=== PATIENT | female | born 1960 | race Caucasian/White ===

== ENCOUNTER 2020-11-20 14:32 | Inpatient (IN) | payer MEDICAID ==
[~2020-11-20] VITALS: Ht 165.1 cm; Wt 79.5 kg
--- NOTE | ~2020-11-20 | HEMODYNAMI ---
PATIENT:MICHAEL MUNOZ MEDICAL RECORD: [id number] : 56 LOCATION:[facility] D.2125 [facility]# [id number] ADMISSION DATE: 11/20/20 Generatedon:114:58 Patient name: MICHAEL MUNOZ Patient #: [id number] SSN: [id number] : 1960 Date of study: 11/21/2020 Page: Of Hemodynamic Procedure Report Patient Data Patient Demographics Procedure consent was obtained First Name: MICHAEL Gender: Female Last Name: ALEXANDER : 1960 [facility] Initial: L Age: 60 year(s) Patient #: [id number] Race: Unknown SSN: [id number] Additional ID: [id number] Contact details Address: [place] [address] State: [place] City: [facility] Zip code: [address] Past Medical History Allergies Allergen Reaction Date Comments Reported Other allergy 11/21/2020 Codeine Admission Admission Data Admission Date: 11/20/2020 Admission Time: 16:48 Admit Source: Other Insurance Payor: Medicaid Room #: D.2125 [facility] #: [id number] Height (in.): 64.96 BSA: 1.86 (m2) Height (cm.): 165 BMI: 29.02 (kg/m2) Weight (lbs.): 174.17 Weight (kg.): 79 Lab Results Lab Result Date: 11/21/2020 Lab Result Time: 0:00 Biochemistry Name Units Result Min Max BUN mg/dl 12 --(-*--)-- 7 18 Creatinine mg/dl 1.1 --(--*-)-- 0.6 1.3 eGFR ml/min 53 *-(----)-- 90 120 NONAFRICAN CBC Name Units Result Min Max Hemoglobin g/dl 13.4 -*(----)-- 13.5 17.5 Procedure Procedure Types Cath Procedure Diagnostic Procedure LHC LHC w/Coronaries FFR/IVUS FFR Initial Sedation Charges Moderate Sedation 10-24 minutes PCI Procedure Hemochron ACT Test Procedure Description Procedure Date Procedure Date: 11/21/2020 Procedure Start Time: 14:28 Procedure End Time: 14:55 Procedure Staff Name Function Jean Carlos Powell MD Performing Physician Adilene Adame RT Monitor More Booker RN Nurse Alma Delia Urban RT Scrub Procedure Data Cath Procedure Fluoroscopy Diagnostic fluoroscopy Total fluoroscopy Time: 8.1 time: 8.1 min min Diagnostic fluoroscopy Total fluoroscopy dose: 658 dose: 658 mGy mGy Contrast Material Contrast Material Type Amount (ml) Isovue 300 92 Entry Location Entry Primary Successful Side Size Upsize Upsize Entry Closure You ccessful Closure Location (Fr) 1 (Fr) 2 (Fr) Remarks Device Remarks Radial Right 6 Fr Mechanical artery Short Compression Estimated blood loss: 10 ml Diagnostic catheters Device Type Used For End Catheter Placement DIAGNOSTIC [place] 110cm 5 Procedure Fr catheter ([id number]) Procedure Complications No complications Procedure Medications Medication Administration Route Dosage 0.9% NaCl I.V. 100 ml/hr Heparin Flush Bag added to field 2 bags (1000units/500ml NS) Lidocaine 2% added to field 20 Oxygen NC 3 l/min Versed I.V. 1 mg Fentanyl I.V. 50 mcg Heparin Bolus I.V. 3000 units Versed I.V. 1 mg Fentanyl I.V. 50 mcg Versed I.V. 1 mg Fentanyl I.V. 50 mcg Versed I.V. 0.5 mg Fentanyl I.V. 25 mcg Hemodynamics Rest BSA: 1.86 (m2) HGB: 13.4 (g/dl) O2 Consumption: Estimated: 172.21 (ml/min) O2 Co nsumption indexed: Estimated:92.59 (ml/min/m) Heart Rate: 66 (bpm) Pressure Samples Time Site Value (mmHg) Purpose Heart Use Rate(bpm) 14:31 LV 109/6,9 Snapshot 67 Gradients Valve Time Site Site Mean SEP/DFP Peak To Heart Use 1 2 (mmHg) (sec/min) Peak Rate (mmHg) (bpm) Aortic 14:31 LV AO 76 Snapshots Pre Cath Intra NCS Post Cath Vital Signs Time Heart Resp SPO2 etCO2 NIBP (mmHg) Rhythm Pain Sedation Rate (ipm) (%) (mmHg) Status Level (bpm) 14:17:49 61 15 100 19.5 181/90(159) NSR 0 (11) 10(A) , No pain 14:23:17 66 29 96 26.3 164/81(138) NSR 0 (11) 10(A) , No pain 14:27:47 58 12 88 30.8 135/69(97) NSR 0 (11) 10(A) , No pain 14:32:46 61 11 92 33.1 Measuring NSR 0 (11) 9(A) , No pain 14:32:59 60 10 92 28.6 127/63(93) NSR 0 (11) 9(A) , No pain 14:37:15 61 19 93 35.4 118/66(104) NSR 0 (11) 9(A) , No pain 14:41:27 58 10 95 34.6 116/61(93) NSR 0 (11) 9(A) , No pain 14:45:41 59 10 94 34.6 118/56(93) NSR 0 (11) 9(A) , No pain 14:49:55 57 13 97 36.9 127/66(102) NSR 0 (11) 9(A) , No pain 14:54:15 48 12 97 33.8 127/60(102) NSR 0 (11) 10(A) , No pain Medications Time Medication Route Dose Verified Delivered Reason Notes Effectiveness by by 14:19:05 0.9% NaCl I.V. 100 Jean Carlos More used for ml/hr AndreJoey Booker procedure MD LEVIN 14:19:13 Heparin Flush added 2 Jean Carlos More used for Bag to bags AndreJoey Booker procedure (1000units/500ml field FERNANDEZ RN NS) 14:19:22 Lidocaine 2% added 20ml Jean Carlos More for local to vial AndreJoey Booker anesthetic field MD LEVIN 14:19:31 Oxygen NC 3 Jean Carlos More for low 02 sats l/min St Joey Booker MD, RN 14:26:37 Versed I.V. 1 mg Jean Carlos More for sedation St Joey Booker MD, RN 14:26:46 Fentanyl I.V. 50 Jean Carlos More for sedation mcg St Joey Booker MD, RN 14:30:03 Versed I.V. 1 mg Jean Carlos More for sedation St Joey Booker MD, RN 14:30:13 Fentanyl I.V. 50 Jean Carlos More for sedation mcg St Joey Booker MD, RN 14:35:22 Versed I.V. 1 mg Jean Carlos More for sedation St Joey Booker MD, RN 14:35:32 Fentanyl I.V. 50 Jean Carlos More for sedation mcg St Joey Booker MD, RN 14:36:36 Heparin Bolus I.V. 3000 Jean Carlos More for verifi ed units St Joey Booker anticoagulation with dr MD POONAM powell 14:40:25 Versed I.V. 0.5 Jean Carlos More for sedation mg St Joey Booker MD, RN 14:40:37 Fentanyl I.V. 25 Jean Carlos More for sedation mcg St Joey Booker MD, RN Procedure Log Time Note 13:54:27 Admit Source: Other 13:54:31 Insurance Payor : Medicaid 13:54:37 Patient Height : 64.96 inches 13:54:41 Patient Weight : 174.17 lbs 13:55:11 Lab Result : eGFR NONAFRICAN 53 ml/min 13:55:11 Lab Result : Creatinine 1.1 mg/dl 13:55:11 Lab Result : BUN 12 mg/dl 13:55:11 Lab Result : Hemoglobin 13.4 g/dl 13:55:46 Procedure Status Urgent Heart Cath (IP). 13:55:50 Adilene Adame RT(R) sent for patient. Start room use. 13:56:04 Time tracking: Regular hours (M-F 7:00 - 5:00) 13:56:10 Plan of Care:Hemodynamics will remain stable., Cardiac rhythm will remain stable., Comfort level will be maintained., Respiratory function will remain adequate., Patient/ family verbilizes understanding of procedure., Procedure tolerated without complication., Recovers from procedure without complications.. 13:56:21 Patient received from Med II to CCL 1 Alert and oriented. Tansferred to table in Supine position. 14:15:27 Vital chart was started 14:19:05 0.9% NaCl 100 ml/hr I.V. was administered by More Booker RN; used for procedure; Verbal order read back and verified. 14:19:13 Heparin Flush Bag (1000units/500ml NS) 2 bags added to field was administered by More Booker RN; used for procedure; Verbal order read back and verified. 14:19:22 Lidocaine 2% 20ml vial added to field was administered by More Booker RN; for local anesthetic; Verbal order read back and verified. 14:19:31 Oxygen 3 l/min NC was administered by More Booker RN; for low 02 sats; Verbal order read back and verified. 14:20:11 Signed procedure consent form obtained from patient. 14:20:13 Warm blankets applied, and rajinder hugger turned on for patient comfort. 14:20:14 Correct patient and procedure confirmed by team. 14:20:14 ECG and BP/O2 sat monitors applied to patient. 14:20:18 Baseline sample Acquired. 14:20:22 Rhythm: sinus rhythm 14:20:24 Full Disclosure recording started 14:20:30 H&P Date Dictated: 11/21/2020 Within 30 days and on chart., H&P Addendum completed by physician on day of procedure. (MUST COMPLETE FOR ALL OUTPATIENTS). 14:20:32 Pre-procedure instructions explained to patient. 14:20:34 Family in patients room. 14:20:36 Patient NPO since Midnight. 14:20:51 Patient allergic to Other allergyCodeine 14:20:56 Is the patient allergic to Iodine/contrast media? No. 14:20:59 Was the patient premedicated? Yes 14:21:07 Is patient on blood thinner?No 14:21:08 Patient diabetic? No. 14:21:12 Snore? Yes 14:21:13 Sleep apnea? No 14:21:22 Patient pain scale 0/10 ?. 14:21:29 IV patent on arrival in left hand with 0.9% NaCl at O. 14:21:32 Lab results completed and on chart. 14:21:40 Right Radial & Right Groin area was prepped with chlora-prep and draped in sterile fashion 14:21:41 Alarms reviewed by R. N. 14:21:42 Sharps counted by scrub and verified by R.N. 14:21:43 Physician arrived 14:21:44 --------ALL STOP TIME OUT------ 14:21:46 Final Timeout: patient, procedure, and site verified with staff and physician. All members of the team are in agreement. 14:21:52 Right Radial & Right Groin site verified by team. 14:21:56 Fire Safety Assessment: A--An alcohol-based skin anteseptic being used preoperatively., C--Open oxygen or nitrous oxide is being used., D--An ESU, laser, or fiber-optic light is being used. 14:22:00 Physical assessment completed. ASA score P 3 - A patient with severe systemic disease as per Jean Carlos Powell MD. 14:22:15 3a) 45-59 Moderately reduced kidney function. 14:22:26 Maximum allowable contrast dose (3.7 X eGFR X 0.75)147 ml. 14:22:31 Sedation plan: IV Moderate Sedation Medication:Versed, Fentanyl 14:22:35 Use device set Radial Dx or PCI 14:22:38 ACIST Syringe (33973) opened to sterile field. 14:22:39 Medline Cath Pack ([id number]) opened to sterile field. 14:22:39 Bag Decanter (2002S) opened to sterile field. 14:22:40 ACIST Hand Control (32529) opened to sterile field. 14:22:41 ACIST Manifold (02640) opened to sterile field. 14:22:43 MBrace Wrist Support (681953308) opened to sterile field. 14:22:45 EMERALD Guide Wire (887-619) opened to sterile field. 14:22:46 SHEATH 6FR RAIN (8659824) opened to sterile field. 14:23:11 Zero performed for pressure channel P1 14:24:28 Zero performed for pressure channel P1 14:26:37 Versed 1 mg I.V. was administered by More Booker RN; for sedation; Verbal order read back and verified. 14:26:46 Fentanyl 50 mcg I.V. was administered by More Booker RN; for sedation; Verbal order read back and verified. 14:27:46 Procedure started. 14:28:04 Local anesthetic to right radial artery with Lidocaine 2% by Jean Carlos Powell MD.INITIAL ACCESS ONLY 14:29:12 A 6 Fr Short sheath was inserted into the Right Radial artery 14:29:30 A DIAGNOSTIC [place] 110cm 5 Fr catheter (580778) was advanced over the wire and used for Procedure. 14:29:33 LV angiography performed. 14:30:03 Versed 1 mg I.V. was administered by More Booker RN; for sedation; Verbal order read back and verified. 14:30:13 Fentanyl 50 mcg I.V. was administered by More Booker RN; for sedation; Verbal order read back and verified. 14:30:48 LV gram done using PATTON 14:31:36 EF : 55 % 14:31:50 LCA angiography performed. 14:33:08 RCA angiography performed. 14:34:55 INFLATOR Merit BasixCompak (EP8141) opened to sterile field. 14:34:56 Iron Station OmniWire (25552) opened to sterile field. 14:35:22 Versed 1 mg I.V. was administered by More Booker RN; for sedation; Verbal order read back and verified. 14:35:28 omni wire advanced. 14:35:32 Fentanyl 50 mcg I.V. was administered by More Booker RN; for sedation; Verbal order read back and verified. 14:36:36 Heparin Bolus 3000 units I.V. was administered by More Booker RN; for anticoagulation; verified with dr powell Verbal order read back and verified. 14:38:28 Wire advanced across lesion. 14:40:17 Wire removed. 14:40:25 Versed 0.5 mg I.V. was administered by More Booker RN; for sedation; Verbal order read back and verified. 14:40:25 Guide Catheter removed. unable to get back-up support 14:40:37 Fentanyl 25 mcg I.V. was administered by More Booker RN; for sedation; Verbal order read back and verified. 14:42:13 GUIDE 6FR XBLAD 3.5 catheter (22725478) opened to sterile field. 14:42:31 6 Fr XBLAD3.5 guide catheter was inserted over the wire 14:48:57 Wire removed. 14:48:59 Guide catheter removed. 14:49:22 Sheath removed intact; hemostasis achieved with Mechanical Compression to the Right Radial artery. 14:49:52 ZEPHYR REGULAR TR BAND (926899) opened to sterile field. 14:49:55 Procedure ended.(Physican Out) 14:50:14 Fluoroscopy time 08.10 minutes. 14:50:20 Flurop Dose total: 658 14:50:20 Fluoroscopy dose: 658 mGy 14:50:28 Dose Area Product 70887 mGy/cm. 14:50:50 Contrast amount:Isovue 300 92ml. 14:50:52 Maximum allowable dose exceeded? No. 14:50:54 Sharps counted by scrub and verified by R.N. 14:51:05 [place] band inflated with 10cc of air. 14:51:16 Post right radial artery:stable 14:51:46 Post Procedure Pulses reassessed and unchanged 14:51:54 Post-procedure physical assessment completed. ASA score P 2 - A patient with mild systemic disease as per Jean Carlos Powell MD. 14:51:59 Post procedure rhythm: sinus rhythm 14:52:03 Estimated blood loss: 10 ml 14:52:05 Post procedure instruction explained to patient.Patient verbalizes understanding. 14:52:51 Procedure type changed to Cath procedure, Diagnostic procedure, LHC, LHC w/Coronaries, FFR/IVUS, FFR Initial, Sedation Charges, Moderate Sedation 10-24 minutes, PCI procedure, Hemochron ACT Test 14:52:53 Procedure and supply charges have been captured, reviewed, submitted and are correct. 14:54:08 Procedure Complication : No complications 14:54:11 Vital chart was stopped 14:54:13 [facility] Findings: mild to moderate CAD (<70%) 14:54:59 See physician's report for complete and final results. 14:55:02 Report given to [facility]. 14:55:27 Patient transfered to [facility] with Bed. 14:55:30 Procedure ended. 14:55:30 Full Disclosure recording stopped 14:55:37 End room use (Document Last) 14:55:59 End room use (Document Last) 14:56:58 End room use (Document Last) 14:58:39 ACT drawn and resulted at 319 seconds. (normal therapeutic range 180-240 seconds). Device Usage Item Name Manufacture Quantity Catalog Hospital Part Current Minima l Lot# / Number Charge Number Stock Stock Serial# Code YUNIOR Tejadaist 1 01290 [id number] 20 Syringe FUELUP (24176) Groove Customer Support Inc Medline Medline 1 [id number] 895422 13230 449737 5 Cath Pack (XLCT88047) Bag Microtek 1 215028 75840 207637 5 DecEpiCrystals Inc. (2002S) ACIST Hand Acist 1 54608 768470 486334 873387 5 Control Medical (90199) Systems Inc ACIST Acist 1 82625 806570 691210 541334 5 Manifold Medical (39616) Systems Inc MBrace Advanced 1 140-0250-00 915459 79615 676783 5 Wrist Vascular Support Dynamics (757270780) EMERALD Cardinal 1 502-455 564092 997476 671694 5 Guide Wire Health (502455) SHEATH 6FR Cardinal 1 6098561 802302 2187499 582695 5 [facility] Health (9107795) DIAGNOSTIC Terumo 1 40-9320 941442 001730 404439 5 [place] 110cm 5 Fr catheter (796070) INFLATOR Merit 1 QP0003 828271 111306 370782 15 [facility] Medical BasixCompak (MM7542) Iron Station Iron Station 1 6038023 245362 51187 9946 5 OmniWire (03404) GUIDE 6FR Cardinal 1 83286279 954281 671865 343811 10 XBLAD 3.5 Health catheter (63822197) ZEPHYR Cardinal 1 088079 895755 7015366 012375 5 REGULAR TR Health BAND (818262) Signature Audit [place] Stage Time Signature Unsigned Intra-Procedure 11/21/2020 Adilene Adame 2:55:59 PM RT(R) Intra-Procedure 11/21/2020 More 2:56:59 PM Ade RN Intra-Procedure 11/21/2020 Jean Carlos Dominique 2:58:54 PM Joey FERNANDEZ [address] [place] [address]
[2020-11-20 15:04] VITALS: Ht 165.1 cm; Wt 79.5 kg
[2020-11-20 15:40] VITALS: BP 166/84
[2020-11-20 15:52] LABS: BASOPHILS 0.2 % (0-2); EOSINOPHILS 1.1 % (0-7); HEMATOCRIT 39.8 % (36.0-48.0); HEMOGLOBIN 13.4 g/dL (12-16); LYMPHOCYTE ABS# 1.33 10x3/uL (1.18-3.74); MCH 32.2 pg (26.0-34.0); MCHC 33.7 g/dL (31.0-37.0); MCV 95.7 fL (80.0-100.0); NEUTROPHIL ABS# 2.73 10x3/uL (1.56-6.13); NEUTROPHILS 61.7 % (40-80); PLATELET COUNT 207 10x3/uL (130-400); RBC 4.16 10x6/uL (4.00-5.40); RDW 12.7 % (11.5-14.5); WBC 4.4 10x3/uL (4.8-10.8)
[2020-11-20 16:00] LABS: APTT 29.1 SECONDS (22.8-39.4); INR 1.06 (0.85-1.17); PROTIME 12.7 SECONDS (11.6-15.0)
[2020-11-20 16:02] LABS: CALC OSMOLALITY 283 mosm/kg (275-300); CARBON DIOXIDE 25.7 mmol/L (21.0-32.0); CHLORIDE - SERUM 107 mmol/L (98-107); CREATININE - SERUM 1.2 mg/dL (0.6-1.3); GLUCOSE 101 mg/dL (74-106); POTASSIUM - SERUM 4.4 mmol/L (3.5-5.1); SODIUM 142 mmol/L (136-145); UREA NITROGEN 14 mg/dL (7-18); eGFR NON AFRICAN AMERICAN 48 mL/min (90-120)
[2020-11-20 16:19] LABS: ALKALINE PHOSPHATASE 106 U/L (30-120); ALT (SGPT) 48 U/L (10-68); BILIRUBIN - TOTAL 0.28 mg/dL (0.2-1.3); CKMB 0.5 U/L (0.0-3.6); CREATINE KINASE 70 UL (21-215); MAGNESIUM - SERUM 2.3 mg/dL (1.8-2.4); PROTEIN - SERUM 7.7 g/dL (6.4-8.2)
[2020-11-20 16:20] LABS: TROPONIN-I < 0.017 ng/mL (0.000-0.060)
--- NOTE | 2020-11-20 18:22 | NUR ---
TRANSFER FROM ER BY STRETCHER. OREINTED TO ROOM. CALL LIGHT IN REACH. WILL CONT. PLAN OF CARE.
[2020-11-20 20:37] VITALS: BP 169/85
[2020-11-20 22:38] LABS: CKMB 0.4 U/L (0.0-3.6); CREATINE KINASE 69 UL (21-215)
[2020-11-20 22:41] LABS: TROPONIN-I < 0.017 ng/mL (0.000-0.060)
--- NOTE | 2020-11-21 00:43 | NUR ---
I have reviewed this patient and I concur with the Shift Assessment completed by the Licensed Practical Nurse today this shift.
[2020-11-21 00:53] VITALS: BP 155/72
[2020-11-21 04:40] LABS: BASOPHILS 0.4 % (0-2); EOSINOPHILS 1.7 % (0-7); HEMATOCRIT 37.3 % (36.0-48.0); HEMOGLOBIN 12.2 g/dL (12-16); IMMATURE GRANULOCYTES 0.2 % (0-5); LYMPHOCYTE ABS# 2.31 10x3/uL (1.18-3.74); LYMPHOCYTES 44.3 % (15-50); MCH 31.4 pg (26.0-34.0); MCHC 32.7 g/dL (31.0-37.0); MCV 95.9 fL (80.0-100.0); MEAN PLATELET VOLUME 10.1 fL (7.4-10.4); MONOCYTES 8.4 % (2-11); NEUTROPHIL ABS# 2.35 10x3/uL (1.56-6.13); PLATELET COUNT 209 10x3/uL (130-400); RBC 3.89 10x6/uL (4.00-5.40); RDW 12.7 % (11.5-14.5); WBC 5.2 10x3/uL (4.8-10.8)
[2020-11-21 05:05] LABS: ALBUMIN 3.4 g/dL (3.4-5.0); ALKALINE PHOSPHATASE 93 U/L (30-120); ALT (SGPT) 41 U/L (10-68); BILIRUBIN - TOTAL 0.22 mg/dL (0.2-1.3); CALC OSMOLALITY 284 mosm/kg (275-300); CALCIUM 8.4 mg/dL (8.5-10.1); CHLORIDE - SERUM 109 mmol/L (98-107); CKMB 0.3 U/L (0.0-3.6); CREATINE KINASE 65 UL (21-215); CREATININE - SERUM 1.1 mg/dL (0.6-1.3); GLUCOSE 94 mg/dL (74-106); MAGNESIUM - SERUM 2.1 mg/dL (1.8-2.4); POTASSIUM - SERUM 4.1 mmol/L (3.5-5.1); PROTEIN - SERUM 6.7 g/dL (6.4-8.2); SODIUM 143 mmol/L (136-145); UREA NITROGEN 12 mg/dL (7-18); eGFR NON AFRICAN AMERICAN 53 mL/min (90-120)
[2020-11-21 05:08] LABS: TROPONIN-I < 0.017 ng/mL (0.000-0.060)
[2020-11-21 05:35] VITALS: BP 152/69
--- NOTE | 2020-11-21 07:10 | NUR ---
RECEIVE SHIFT REPORT. RESTING IN BED. DENIES ANY NEEDS AT THIS TIME. CALL LIGHT IN REACH. WILL CONTINUE POC AND SAFETY PRECAUTIONS.
[2020-11-21 08:04] VITALS: BP 156/82
[2020-11-21 09:01] LABS: CHOL - HDL RATIO 4.6 ratio (2.3-4.1); THYROID STIMULATING HORMONE 2.48 uIU/mL (0.36-3.74)
[2020-11-21 09:42] LABS: CKMB 0.3 U/L (0.0-3.6); CREATINE KINASE 71 UL (21-215); TROPONIN-I < 0.017 ng/mL (0.000-0.060)
--- NOTE | 2020-11-21 14:10 | NUR ---
OFF FLOOR TO HOUSE REGISTRY RN.
--- NOTE | 2020-11-21 16:30 | NUR ---
8CC OF AIR IN BAND TO RIGHT WRIST. LET OUT 4CC.
--- NOTE | 2020-11-21 18:18 | NUR ---
4CC AIR IN BAND TO RIGHT WRIST. LET OUT 4CC. NO BLEEDING. WILL CONTINUE MONITORING SITE FOR BLEEDING.
[2020-11-21 20:04] VITALS: BP 111/67
[2020-11-22 00:34] VITALS: BP 101/62
--- NOTE | 2020-11-22 04:51 | NUR ---
I have reviewed this patient and I concur with the Shift Assessment completed by the Licensed Practical Nurse today this shift.
[2020-11-22 06:24] LABS: BASOPHILS 0.4 % (0-2); EOSINOPHILS 1.8 % (0-7); HEMATOCRIT 34.4 % (36.0-48.0); HEMOGLOBIN 11.4 g/dL (12-16); LYMPHOCYTE ABS# 2.15 10x3/uL (1.18-3.74); LYMPHOCYTES 44.1 % (15-50); MCHC 33.1 g/dL (31.0-37.0); MCV 96.6 fL (80.0-100.0); MEAN PLATELET VOLUME 10.2 fL (7.4-10.4); MONOCYTES 8.8 % (2-11); NEUTROPHIL ABS# 2.19 10x3/uL (1.56-6.13); NEUTROPHILS 44.9 % (40-80); PLATELET COUNT 185 10x3/uL (130-400); RBC 3.56 10x6/uL (4.00-5.40); RDW 12.8 % (11.5-14.5); WBC 4.9 10x3/uL (4.8-10.8)
[2020-11-22 06:56] LABS: ALBUMIN 3.1 g/dL (3.4-5.0); BILIRUBIN - TOTAL 0.26 mg/dL (0.2-1.3); CALCIUM 8.2 mg/dL (8.5-10.1); CARBON DIOXIDE 24.1 mmol/L (21.0-32.0); CREATININE - SERUM 1.2 mg/dL (0.6-1.3); POTASSIUM - SERUM 4.1 mmol/L (3.5-5.1); PROTEIN - SERUM 6.1 g/dL (6.4-8.2)
--- NOTE | 2020-11-25 08:00 | CN ---
PATIENT NAME:MICHAEL MUNOZ MEDICAL RECORD: [id number] : 56 LOCATION:D. D.2125 ADMIT DATE: 11/22/20 ACCOUNT: [id number] CONSULTING PHYSICIAN: BILL MINER MD REFERRING PHYSICIAN: HAILEE EARLY MD DATE OF CONSULTATION: 11/21/2020 HISTORY OF PRESENT ILLNESS: A 60-year-old female with no known history of coronary artery disease for the past month or so has been having intermittent chest tightness and pressure with exertion, heaviness. Eventually had a rest symptomatology accompanied by dizziness. At this point in time, found to be bradycardic. Does have a strong family history of coronary artery disease. There have been mildly elevated lipids in the past. We are asked to see her concerning her cardiovascular status. PAST MEDICAL HISTORY: Includes history of hyperlipidemia untreated mostly due to patient factors. ALLERGIES: CODEINE. SOCIAL HISTORY: Nonsmoker, nondrinker. Up until the last few months did try to exercise on a regular basis. Easily takes cares all of her ADLs. REVIEW OF SYSTEMS: The patient reports easy bruising but reports no swollen glands. The patient reports no fever, no night sweats, no significant weight gain, no significant weight loss. No significant exercise tolerance. The patient reports no dry eyes, no irritation, no vision change. Patient reports no difficulty hearing and no ear pain. Patient reports no frequent nose bleeds or nose and sinus problems. Patient reports on arm pain on exertion. No shortness of breath while lying down. No history of heart murmur. Patient reports no cough, no wheezing or coughing up blood. Patient reports no abdominal pain, no vomiting. Normal appetite. No diarrhea and not vomiting blood. No nausea and no constipation. Patient reports no incontinence. No difficulty urinating. No hematuria. No increased frequency. Patient reports no muscle aches. No weakness, no arthralgias, no back pain. No swelling of the extremities. Patient reports no abnormal mole, no jaundice, no rashes. Reports no loss of consciousness. No weakness and no numbness. No seizures, dizziness, or headaches. The patient reports no depression, no sleep disturbance, feeling safe in a relationship and no alcohol abuse. Patient reports on fatigue. Reports no runny nose or sinus pressure. No itching, no hives, and no frequent sneezing. MEDICATIONS: None chronically. PHYSICAL EXAMINATION: GENERAL: No acute distress, appears stated age. VITAL SIGNS: 156/82, pulse 54 and regular. HEENT: Normocephalic, atraumatic. NECK: No bruits noted. HEART: Regular. Questionable S4 gallop. LUNGS: Good air excursion. ABDOMEN: Soft and nontender. EXTREMITIES: Pulses well preserved, 2+. No edema. IMPRESSION: Acute coronary syndrome, now with rest symptomatology with family CONSULT REPORT [id number] MICHAEL MUNOZ history and hyperlipidemia. PLAN: For angiography. Given her bradyarrhythmias, would probably benefit from prolonged monitoring. Further recommendation based on above. TRANSINT:[id number] Voice Confirmation ID: [id number] DOCUMENT ID: [id number] BILL MINER MD at 0800 CC: [id number] DICTATION DATE: 11/21/20 0856 RN BURN: 11/21/20 1026 DIS IN 11/22/20 [id number] [place] [address]
--- NOTE | 2020-11-25 08:00 | EC ---
PATIENT:MICHAEL MUNOZ DATE OF SERVICE: 11/20/20 SEX: F MEDICAL RECORD: [id number] DATE OF : 56 LOCATION:D. D.212 AGE OF PATIENT: 60 ADMISSION DATE: 11/22/20 REFERRING PHYSICIAN: INTERPRETING PHYSICIAN: BILL MINER MD ECHOCARDIOGRAM REPORT ECHO CHARGES 4 ECHO COMPLETE Date: 11/21/20 CLINICAL DIAGNOSIS: BRADYCARDIA, CP ECHOCARDIOGRAPHIC MEASUREMENTS (adult normal given) AC root (d.<3.7cm) 2.6 cm LV Septum d (<1.2 cm> 0.8 cm Valve Excursion 1.1 cm LV Septum (systole) 1.1 cm Left Atria (s.<4.0cm> 3.3 cm LVPW d(<1.2cm) 0.9 cm RV (d.<2.3cm) 2.2 cm LVPW (sytole) 1.2 cm LV diastole(<5.6CM) 4.5 cm MV E-F(>70mm/sec) cm LV systole 3.1 cm LVOT Diameter 1.6 cm MV exc.(>10mm) 1.2 cm Est.ejection fraction (50-75%) % DOPPLER: LVIT cm/sec A 69 cm/sec E 116 cm/sec LA cm/sec RVSP 20 mmHg LVOT 107 cm/sec AOP1/2T m/s Asc. Ao 121 cm/sec RVOT 58 cm/sec RA cm/sec PA 69 cm/sec AV Gradient Peak 5.9 mmHg AV Mean 3.4 mmHg AV Area 1.5 cm MV Gradient Peak 4.4 mmHg MV Mean 1.8 mmHg MV Area cm COMMENTS: Damage Assessor: Miladys NEWMAN Axminster Weaver: 3 Dr. Licona TAPE# Pericardial Effusion N DATE OF SERVICE: FINDINGS: No LVH. LV internal dimension is normal. Wall motion is normal. EF is greater than or equal to 55%. Aortic valve is tricuspid. No evidence of stenosis by Doppler interrogation. Left atrium is normal. Mitral valve shows no prolapse. Trace MR. Right side is grossly normal. Trace TR. TRANSINT:[id number] Voice Confirmation ID: [id number] DOCUMENT ID: [id number] ECHOCARDIOGRAM REPORT [id number] ALEXANDERMICHAEL BASS BILL MINER MD at 0800 CC: [id number] DICTATION DATE: 11/21/20 1525 ANIME DESIGNER: 11/21/20 1551 DIS IN 11/22/20 [id number] [place] [address]
--- NOTE | 2020-11-25 08:00 | OP ---
PATIENT NAME: MICHAEL MUNOZ MEDICAL RECORD: [id number] :56 LOCATION:D.M2 D.2125 ADMISSION DATE:11/22/20 SURGEON: BILL MINER MD DATE OF OPERATION: 11/21/2020 PROCEDURE: Left heart catheterization, selective coronary angiography, right radial approach post IFR wire to the circumflex. FINDINGS: Left ventriculography in 30 degree PATTON view; normal wall motion, normal systolic function. CORONARY ANATOMY: LEFT MAIN: Left main is free of disease. LAD: Free of disease in the diagonal system. CIRCUMFLEX: Has a questionable stenosis in its mid portion; however, IFR wire is normal, better than 0.9. RIGHT CORONARY ARTERY: Rudimentary, free of disease. IMPRESSION: No evidence of obstructive coronary artery disease via both angiography and IFR wire. Left ventricular function is normal. We will set for a prolonged telemetry as an outpatient given her bradycardia. TRANSINT:[id number] Voice Confirmation ID: [id number] DOCUMENT ID: [id number] BILL MINER MD at 0800 CC: [id number] DICTATION DATE: 11/21/20 1457 API DEVELOPER: 11/21/20 1550 DIS IN 11/22/20 [address] [place] [address]
== END 2020-11-22 14:40 | disposition home or self-care (01) | DRG 287 ==
LOC: D.ER 14:32 → D.M2 16:48 → OBSVTIME 16:48 → D.M2 11-22 01:19
PROVIDERS: Emergency Medicine; Internal Medicine Interventional Cardiology; ADMIT Family Medicine; ATTEND Family Medicine
PROC: B2151ZZ Fluoroscopy of Left Heart using Low Osmolar Contrast (ICD-10-PCS; 2020-11-21)
PROC: 4A023N7 Measurement of Cardiac Sampling and Pressure, Left Heart, Percutaneous Approach (ICD-10-PCS; 2020-11-21)
PROC: B2111ZZ Fluoroscopy of Multiple Coronary Arteries using Low Osmolar Contrast (ICD-10-PCS; principal; 2020-11-21 13:50)
DX: I49.8 Other specified cardiac arrhythmias (principal); I24.9 Acute ischemic heart disease, unspecified; E78.5 Hyperlipidemia, unspecified; R55 Syncope and collapse; F17.200 Nicotine dependence, unspecified, uncomplicated; D72.819 Decreased white blood cell count, unspecified